=== PATIENT | female | born 1955 | race Caucasian/White ===

== ENCOUNTER 2017-05-06 09:54 | Emergency (ER) | payer OTHER ==
[~2017-05-06] VITALS: Ht 152.4 cm; Wt 61.2 kg
[~2017-05-06 09:54] MED LIST: ALEVE220 MG PO; ASPIRIN EC325 MG PO; ASPIRIN EC81 MG PO; ATORVASTATIN CA80 MG PO; CALCIUM CITRAT250 MG PO; CYCLOBENZAPRINE10 MG PO; CYMBALTA30 MG PO; DULOXETINE HCL60 MG PO; GEODON60 MG PO; GEODON80 MG PO; LAMICTAL XR100 MG PO; LAMICTAL100 MG PO; LAMICTAL200 MG PO; LAMOTRIGINE100 MG PO; LAMOTRIGINE200 M1 PO; LEXAPRO20 MG PO; LIPITOR80 MG PO; NORCO 7.5-3251 EACH PO; ONDANSETRON ODT4 MG SL; OXYCODONE HCL5 M1 PO; VITAMIN D5000 UNIT PO; XARELTO10 MG PO
[2017-05-06] MEDS ORDERED: IBUPROFEN200 M1 PO (10:02)
[2017-05-06] MEDS ORDERED: NORCO 5-325 TA1 EACH PO (11:00)
[2017-06-03] MEDS ORDERED: VISTARIL25 MG PO (11:57)
== END 2017-05-06 12:44 | disposition home or self-care (01) ==
LOC: ED 09:54
DX: S42.351A Displaced comminuted fracture of shaft of humerus, right arm, initial encounter for closed fracture (principal); F32.9 Major depressive disorder, single episode, unspecified; Z87.891 Personal history of nicotine dependence; Z96.641 Presence of right artificial hip joint; Z79.82 Long term (current) use of aspirin; Z79.899 Other long term (current) drug therapy; W19.XXXA Unspecified fall, initial encounter
CPT/HCPCS: 73060; 99283

== ENCOUNTER 2017-05-26 18:12 | Emergency (ER) | payer OTHER ==
[~2017-05-26] VITALS: Ht 152.4 cm; Wt 61.2 kg
[~2017-05-26 18:12] MED LIST changes: +IBUPROFEN200 M1 PO; +NORCO 5-325 TA1 EACH PO
[2017-05-26] MEDS ORDERED: OXYCODONE HCL5 MG PO (18:30)
[2017-05-26] MEDS ORDERED: ZIPRASIDONE HCL80 MG PO (18:30)
[2017-05-26] MEDS ORDERED: PERCOCET 5-3251 EACH PO (18:47)
[2017-06-03] MEDS ORDERED: VISTARIL25 MG PO (11:57)
== END 2017-05-26 19:17 | disposition home or self-care (01) ==
LOC: ED 18:12
DX: G89.29 Other chronic pain (principal); M25.531 Pain in right wrist; S42.301D Unspecified fracture of shaft of humerus, right arm, subsequent encounter for fracture with routine healing; F32.9 Major depressive disorder, single episode, unspecified; Z87.891 Personal history of nicotine dependence; Z96.641 Presence of right artificial hip joint; Z79.82 Long term (current) use of aspirin; Z79.899 Other long term (current) drug therapy; X58.XXXD Exposure to other specified factors, subsequent encounter
CPT/HCPCS: 99283

== ENCOUNTER 2017-07-09 06:55 | Day surgery (SDC) | payer OTHER ==
[~2017-07-09] VITALS: Ht 152.4 cm; Wt 63.0 kg
[~2017-07-09 06:55] MED LIST changes: +OXYCODONE HCL5 MG PO; +PERCOCET 5-3251 EACH PO; +VISTARIL25 MG PO; +ZIPRASIDONE HCL80 MG PO
--- NOTE | 2017-07-09 11:28 | NUR ---
07/09/17 Hannah8 Saray Ibrahim 1126 O2 SAT 100% O2 REMOVED.
--- NOTE | 2017-07-09 12:12 | NUR ---
LE 1205 PT RETURNED FROM PACU WIDE AWAKE. VITAL SIGNS TAKEN. R SHOULDER IN IMMOBILIZER WITH ICE PRESENT. SIPPING ON WATER. CALL LITE IN PLACE.
[2017-07-09] MEDS ORDERED: NORCO 10-325 T1 EACH PO (12:24)
--- NOTE | 2017-07-11 08:10 | OR ---
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 PROCEDURE Resection of pseudarthrosis and open reduction and internal fixation of right humeral fracture. SURGEON: Librado Levine MD. ANESTHESIA: General. SPECIMENS: There were no specimens. COMPLICATIONS: There were no complications. TOURNIQUET: Not used. DESCRIPTION OF PROCEDURE The patient was taken to the operating room. After anesthesia was induced and the airway secured, the patient was placed in a slightly inclined position. Right upper extremity was prepped and draped in a routine sterile fashion. Beginning at the tip of her previous incision for a total shoulder arthroplasty, a lateral incision was made over the humerus all the way down to the lateral epicondyle. Skin was divided sharply. Subcutaneous tissue was bluntly spread. Hemostasis was achieved with electrocautery. We were able to identify the radial nerve down at the lateral aspect of the supracondylar area and then dissected proximally. As the patient was having a radial nerve symptoms preoperatively, it was not surprising that the nerve was dramatically compromised within the callus. Using sharp and blunt dissection, we were subsequently able to completely free it up. The fracture site was then identified. We removed the pseudarthrosis tissue and the synovial fluid that was formed. We then debrided the ends of the proximal and distal fragments. We were then able to realign them and secure them with a 10-hole 3.5 plate using 2 bone clamps. Once we were happy with alignment, position, and reduction, we secured the reduction with multiple screws. The wound was gently irrigated and closed in a standard fashion. Sterile dressing was applied and the patient was placed in an UltraSling. She was awakened and taken to recovery room where she arrived in stable condition. Counts were correct and antibiotic protocols were followed. Electronically Signed By: LIBRADO LEVINE MD 07/11/17 0810 PATIENT NAME: ANDRA CASEY GIOVANNI OPERATIVE REPORT DATE OF : 57 PHYSICIAN: LIBRADO LEVINE MD REPORT #: [id number] REPORT IS CONFIDENTIAL AND NOT TO BE RELEASED WITHOUT AUTHORIZATION [address], [place] [address] Signed Librado Levine MD WFB/Modl /[id number] cc: RUBENS Hutton Electronically Signed By: LIBRADO LEVINE MD 07/11/17 0810 PATIENT NAME: ANDRA CASEY GIOVANNI OPERATIVE REPORT DATE OF : 57 PHYSICIAN: LIBRADO LEVINE MD REPORT #: [id number] REPORT IS CONFIDENTIAL AND NOT TO BE RELEASED WITHOUT AUTHORIZATION
== END 2017-07-09 14:30 | disposition home or self-care (01) ==
LOC: DS 06:55
PROVIDERS: Orthopaedic Surgery
PROC: 0PSF04Z Reposition Right Humeral Shaft with Internal Fixation Device, Open Approach (ICD-10-PCS; principal; 2017-07-09 08:45)
DX: S42.43 Fracture (avulsion) of lateral epicondyle of humerus (principal); W18.30XA Fall on same level, unspecified, initial encounter
CPT/HCPCS: 01630; 64415; 73060; 76942; C1713; J0330; J0690; J1100; J1885; J2250; J2405; J2704; J2795; J3010; J7120

== ENCOUNTER 2020-07-12 07:10 | Day surgery (SDC) | payer OTHER ==
[~2020-07-12] VITALS: Ht 152.4 cm; Wt 74.5 kg
[~2020-07-12 07:10] MED LIST changes: +LATUDA20 MG PO; +LISINOPRIL10 MG PO; +NORCO 10-325 T1 EACH PO; +PRAZOSIN HCL2 MG PO; +VITAMIN D21250 MCG PO
[2020-07-12] MEDS ORDERED: ZOLPIDEM TARTRA10 MG PO (07:32)
--- NOTE | 2020-07-12 08:59 | NUR ---
07/12/20 0859 Vandana Sommers 0850- PT TO PACU IN LL POSITION. EYES OPEN ASKING QUESTIONS APPROPRIATELY. DROWSY. BREATHING EASY AND UNLABORED. SPO2 >95% ON 3 L O2 VIA NC. PT DENIES PAIN OR NAUSEA. 0858- PT REPOSITIONS SELF TO LL SIDE WITH KNEES UP. PT ENCOURAGED TO PASS GAS. BREATHING EASY AND UNLABORED. SPO2 >95% ON 3 L O2 VIA NC.
--- NOTE | 2020-07-13 06:29 | OR ---
[facility] [address] [place], [place] [address] Signed DATE OF OPERATION: 07/12/2020 SURGEON: Ander Koehler MD PREOPERATIVE DIAGNOSES: 1. Cough. 2. Hiatal hernia. 3. Gastroesophageal reflux disease. 4. Gastritis. 5. Hyperplastic rectal polyps, 2008. 6. Internal hemorrhoids. POSTOPERATIVE DIAGNOSES: 1. Moderate-sized hiatal hernia. 2. Mild distal gastritis. 3. A 4 mm rectal polyp at 12 cm. PROCEDURES: 1. EGD with CLOtest and biopsies of antrum and GE junction. 2. Colonoscopy with hot biopsy. ESTIMATED BLOOD LOSS: None. INDICATIONS: Andra is a 64-year-old female, asked to see me for both upper and lower endoscopy. She has had cough, but the inhaled steroids seemed to be helping. She is known to have a moderate-sized hiatal hernia along with the acid reflux and gastritis back in 2008. Her repeat chest x-ray did show a hiatal hernia. She is also known to have hyperplastic rectal polyps as well as some internal hemorrhoids from 2008. There is no family history of colon cancer or polyps. She has no lower GI complaints. She has done well with Versed and fentanyl in the past. I had met with Andra in the office and I reviewed with her upper and lower endoscopy. I gave her pamphlets on both, so she could look at this closer at home. She understands there is risk including, but not limited to gas bloating, crampy abdominal pain, bleeding, perforation requiring surgery, and missed diagnosis. We also discussed the need for the IV conscious sedation. She had expressed understanding and wished to proceed. DESCRIPTION OF PROCEDURE: Andra was taken into our endoscopy suite and placed in a supine semi-recumbent position. Electronically Signed By: ANDER KOEHLER MD 07/13/20 0629 PATIENT NAME: ANDRA VELIZ OPERATIVE REPORT DATE OF : 57 REPORT #: [id number] PHYSICIAN: ANDER KOEHLER MD PCP: ROYAL MONTERO REPORT IS CONFIDENTIAL AND NOT TO BE RELEASED WITHOUT AUTHORIZATION [facility] [address] [place], [place] [address] Signed She has been through a hip replacement and shoulder surgery and she has used quite a bit hydrocodone, oxycodone, but none recently. Nevertheless, she used 11 mg of Versed and 225 mcg of fentanyl to cover the whole case. Even then she was talking with this during the upper and lower endoscopy. Yet afterward she said she did fine and does not seem to recall the procedures. The posterior oropharynx was anesthetized with lidocaine spray. A bite block has been utilized for the case. The adult gastroscope was introduced and advanced under direct visualization of camera into the third portion of the duodenum under direct visualization without difficulty. The duodenum and pyloric channel were unremarkable. Very mild erythema in the antrum, so we took a biopsy for CLOtest as well as pathologic review. Otherwise, the incisura body and fundus of the stomach were unremarkable. Upon retroflexion of the scope, we can certainly see her moderate-sized hiatal hernia. The scope was withdrawn up through the GE junction and was compliant without stricture. No gastric or esophageal varices. No Esteban ulcer. No Kadie-Bill tear. She does have mild disruption to the Z-line. Consequently, we took a biopsy along this area for pathologic review. However no Albarran's mucosa, no distal esophagitis. The middle and upper esophagus were unremarkable. We could also see that the vocal cords and arytenoids were unremarkable. After this, the gas was suctioned out and the gastroscope removed. Andra tolerated procedure quite well. Andra was rotated into the left lateral decubitus position. She had been maintained on the Versed and fentanyl. A digital rectal exam was performed and this was unremarkable. The adult colonoscope was introduced and advanced under direct visualization of camera into the cecum itself. Her prep was quite excellent. We could easily see the ileocecal valve and the appendiceal orifice. She did talk to us a bit as we advanced the scope, but again she does not seem to have any recall of that afterwards. The scope was slowly withdrawn. The entire colon was unremarkable. She had just a small polyp in the top of the rectum, which we removed with the help of hot biopsy forceps. Upon retroflexion of scope, we really did not see any pathology on this occasion. The gas was then suctioned out and the colonoscope removed. Andra tolerated the lower endoscopy quite well. RECOMMENDATIONS: I will see Andra back in my office in 7 to 14 days to review her results. MD YADI Coyne/KALYNL /[id number] Electronically Signed By: ANDER KOEHLER MD 07/13/20 0629 PATIENT NAME: ANDRA VELIZ OPERATIVE REPORT DATE OF : 57 REPORT #: [id number] PHYSICIAN: ANDER KOEHLER MD PCP: ROYAL MONTERO REPORT IS CONFIDENTIAL AND NOT TO BE RELEASED WITHOUT AUTHORIZATION [facility] [address] [place] [address] Signed cc: [facility] MD Royal Coyne Copies: ANDER KOEHLER MD, BRUCE ~ Electronically Signed By: ANDER KOEHLRE MD 07/13/20 0629 PATIENT NAME: ANDRA VELIZ OPERATIVE REPORT DATE OF : 57 REPORT #: [id number] PHYSICIAN: ANDER KOEHLER MD PCP: ROYAL MONTERO REPORT IS CONFIDENTIAL AND NOT TO BE RELEASED WITHOUT AUTHORIZATION
--- NOTE | 2020-07-13 11:16 | PATH ---
[facility] [address] [place], [place] [address] Signed SPECIMEN(S): A ANTRUM/PYLORUS SPECIMEN(S): B GE JUNCTION SPECIMEN(S): C RECTAL POLYP AT 12 CM SPECIMEN SOURCE: A. ANTRUM/PYLORUS B. GE JUNCTION C. RECTAL POLYP AT 12 CM CLINICAL HISTORY: GERD, chronic cough, hiatal hernia, gastritis, history polyps. Post-op: Mild gastritis, hiatal hernia, rectal polyp. Esophagogastroduodenoscopy, colonoscopy. MICROSCOPIC DESCRIPTION: Histologic sections of all submitted blocks are examined by light microscopy. These findings, together with the gross examination, support the pathologic diagnosis. FINAL PATHOLOGIC DIAGNOSIS: A. Stomach, antrum/pylorus, biopsy: - Antral mucosa with mild chronic, inactive gastritis. - Negative for Helicobacter organisms on HE stain. - Negative for dysplasia or malignancy. B. Gastroesophageal junction, biopsy: - Squamous mucosa with no histopathologic abnormality. - Negative for intestinal metaplasia, dysplasia, or malignancy. C. Rectum, polyp at 12 cm, polypectomy: - Hyperplastic polyp. - Negative for dysplasia or malignancy. NAL:cml:C2NR GROSS DESCRIPTION: Three specimens are received in three containers, labeled "LH." A. The specimen, labeled "LH," and designated on the requisition "antrum/pylorus biopsy," is received in formalin and consists of one fragment of pink-burgess tissue (0.4 x 0.3 x 0.2 cm). The specimen is submitted entirely in cassette (A1). B. The specimen, labeled "LH," and designated on the requisition "EG junction biopsy," is received in formalin and consists of one fragment of white-burgess tissue (4.5 x 0.2 x 0.2 cm). The specimen is submitted entirely in cassette (B1). PATIENT NAME: ANDRA VELIZ PATHOLOGY DATE OF : 57 REPORT #: [id number] PHYSICIAN: RADHA PATHOLOGY PCP: EVETTE MONTERO REPORT IS CONFIDENTIAL AND NOT TO BE RELEASED WITHOUT AUTHORIZATION [facility] [address] [place], [place] [address] Signed C. The specimen, labeled "LH," and designated on the requisition "rectal polypectomy at 12 cm," is received in formalin and consists of one fragment of pink-burgess tissue (0.3 x 0.2 x 0.2 cm). The specimen is submitted entirely in cassette (C1). AC (under the direct supervision of a pathologist) The Gross Description was prepared using a voice recognition system. The report was reviewed for accuracy; however, sound-alike word errors, addition and/or deletions may occur. If there is any question about this report, please contact Client Services. PERFORMING LABORATORY: The technical component was performed by [facility], [address] [place] [id number] (Freight Checker: Enid Leon MD; CLIA# [id number]). [facility], [address] [place] [id number] (CLIA# [id number]). Diagnostician: Nae Hernandez MD Pathologist Electronically Signed 07/13/2020 Copies: ~ PATIENT NAME: ANDRA VELIZ PATHOLOGY DATE OF : 57 REPORT #: [id number] PHYSICIAN: RADHA PATHOLOGY PCP: EVETTE MONTERO REPORT IS CONFIDENTIAL AND NOT TO BE RELEASED WITHOUT AUTHORIZATION
== END 2020-07-12 09:35 | disposition home or self-care (01) ==
LOC: DS 07:10 → OPS 07:10 → DS 08:15 → OPS 08:15
PROVIDERS: ATTEND Colon & Rectal Surgery
PROC: 0DBP8ZZ Excision of Rectum, Via Natural or Artificial Opening Endoscopic (ICD-10-PCS; 2020-07-12)
PROC: 0DB48ZX Excision of Esophagogastric Junction, Via Natural or Artificial Opening Endoscopic, Diagnostic (ICD-10-PCS; principal; 2020-07-12 08:15)
PROC: 0DB78ZX Excision of Stomach, Pylorus, Via Natural or Artificial Opening Endoscopic, Diagnostic (ICD-10-PCS; 2020-07-12 08:15)
DX: Z12.11 Encounter for screening for malignant neoplasm of colon (principal); K62.1 Rectal polyp; K29.50 Unspecified chronic gastritis without bleeding; K21.9 Gastro-esophageal reflux disease without esophagitis; K44.9 Diaphragmatic hernia without obstruction or gangrene; I25.10 Atherosclerotic heart disease of native coronary artery without angina pectoris; E78.5 Hyperlipidemia, unspecified; E55.9 Vitamin D deficiency, unspecified; F31.9 Bipolar disorder, unspecified; F41.0 Panic disorder [episodic paroxysmal anxiety]; F43.10 Post-traumatic stress disorder, unspecified; Z87.19 Personal history of other diseases of the digestive system; Z79.899 Other long term (current) drug therapy; Z79.82 Long term (current) use of aspirin; Z87.891 Personal history of nicotine dependence
CPT/HCPCS: 86677; 99153; G0500; J0690; J2250; J3010; J7121

== ENCOUNTER 2025-03-23 18:09 | Emergency (ER) | payer OTHER, MEDICARE ==
[~2025-03-23] VITALS: Ht 152.4 cm; Wt 71.1 kg
[~2025-03-23 18:09] MED LIST changes: +HYDROCODON-ACE1 EA10 PO; +ZOLPIDEM TARTRA10 MG PO
[2025-03-23 19:00] VITALS: BP 129/77
== END 2025-03-23 19:00 | disposition home or self-care (01) ==
LOC: ED 18:09
DX: R07.89 Other chest pain (principal); Z79.82 Long term (current) use of aspirin; Z79.899 Other long term (current) drug therapy; Z87.891 Personal history of nicotine dependence
CPT/HCPCS: 71045; 99284-25

== ENCOUNTER 2025-08-24 09:34 | Inpatient (IN) | payer MEDICARE ==
[~2025-08-24] VITALS: Ht 152.4 cm; Wt 70.0 kg
[~2025-08-24 09:34] MED LIST changes: +HYDROXYZINE PAM25 MG PO; -VISTARIL25 MG PO
[2025-08-24] MEDS ORDERED: ALBUTEROL/IPRATROPIUM 3 ML NEB INH PRN (09:45)
[2025-08-24 09:52] LABS: MCH 30.9 PG (25.6-32.2); MCHC 32.9 g/dL (32.2-35.5); MCV 94.0 fL (79.4-94.8); RBC 4.17 M/uL (3.93-5.22)
[2025-08-24] MEDS ORDERED: SODIUM CHLORIDE 0.9% 1,000 ML IV PRN (10:15)
[2025-08-24 10:18] LABS: BANDS, MANUAL DIFF 3; LYMPHOCYTES, MANUAL DIFF 33; MONOCYTES, MANUAL DIFF 2; NEUTROPHILS, MANUAL DIFF 62
[2025-08-24 10:20] LABS: BASOPHILS, MANUAL DIFF 0; EOSINOPHILS, MANUAL DIFF 0
[2025-08-24 10:21] LABS: ALT (SGPT) 48.0 U/L (14-59); AST (SGOT) 34.0 U/L (15-37); GLOMERULAR FILTRATION RATE,EST 53.0 mL/min (>60); PROTEIN, TOTAL 6.9 g/dL (6.4-8.2); UREA NITROGEN 16.0 mg/dL (7-18)
[2025-08-24 10:23] LABS: CORONAVIRUS COVID-19 AG NEGATIVE (NEGATIVE)
[2025-08-24] MEDS ORDERED: TRAZODONE HCL100 MG PO (10:50)
[2025-08-24] MEDS ORDERED: GABAPENTIN100 MG PO (10:50)
[2025-08-24] MEDS ORDERED: PRAZOSIN HCL5 MG PO (10:51)
[2025-08-24] MEDS ORDERED: ARIPIPRAZOLE2 MG PO (10:51)
[2025-08-24] MEDS ORDERED: DULOXETINE HCL30 MG PO (10:51)
[2025-08-24] MEDS ORDERED: TRAZODONE HCL50 MG PO (10:52)
[2025-08-24] MEDS ORDERED: LISINOPRIL20 MG PO (10:52)
[2025-08-24] MEDS ORDERED: ZOLPIDEM TART12.5 MG PO (10:53)
[2025-08-24] MEDS ORDERED: SPIRIVA RESPIMAT4 G1 INH (10:53)
[2025-08-24] MEDS ORDERED: VENTOLIN HFA18 GM INH (10:53)
[2025-08-24] MEDS ORDERED: ROSUVASTATIN CA20 MG PO (10:54)
[2025-08-24] MEDS ORDERED: ALENDRONATE SOD70 MG PO (10:55)
[2025-08-24 11:18] LABS: BLOOD/HGB, URINE NEGATIVE (Negative); KETONE, URINE NEGATIVE (Negative); LEUK ESTERASE, URINE SMALL (negative); NITRITE, URINE NEGATIVE (negative)
[2025-08-24 11:24] LABS: BACTERIA, URINE RARE /hpf (negative); CASTS, URINE NONE SEEN \\lpf; CRYSTALS, URINE NONE SEEN (0-1+)
[2025-08-24 11:25] LABS: EPITHELIAL CELLS, URINE SQUAMOUS 1+ /lpf (0-1+)
[2025-08-24 11:26] LABS: REFLEX CULTURE, URINE Yes (No)
[2025-08-24] MEDS ORDERED: ACETAMINOPHEN 325 MG TAB PO PRN (13:15)
[2025-08-24] MEDS ORDERED: LACTATED RINGER'S 1,000 ML IV SCH (13:15)
[2025-08-24] MEDS ORDERED: ALBUTEROL/IPRATROPIUM 3 ML NEB INH SCH (14:00)
[2025-08-24] MEDS ORDERED: TRAZODONE HCL 100 MG TAB PO PRN (14:00)
[2025-08-24] MEDS ORDERED: ZOLPIDEM TARTRATE 5 MG TAB PO PRN (14:00)
[2025-08-24 14:11] VITALS: BP 133/71
--- NOTE | 2025-08-24 14:20 | NUR ---
PT REPORT RECIEVED FROM KALI COSBY. PT TRANSPORTED VIA STRETCHER AND DID STAND AND AMBULATE TO BED, PT TOLERATED WELL. AND IS CURRENTLY IN BED WITH CALL LIGHT IN REACH AND NO CURRENT CONCERNS, PT VITALS STABLE AT THIS TIME.
[2025-08-24] MEDS ORDERED: DULOXETINE HCL60 MG PO (14:40)
[2025-08-24] MEDS ORDERED: GABAPENTIN 100 MG CAP PO SCH (15:00)
--- NOTE | 2025-08-24 15:21 | NUR ---
MED REC COMPLETE
[2025-08-24] MEDS ORDERED: ARIPiprazole 5 MG TAB PO SCH ×2 (17:00)
--- NOTE | 2025-08-24 17:12 | NUR ---
PT COMPLAINED OF HEAD ACHE AND WAS GIVEN PRN TYLENOL (SEE EMAR). PT TEMP 100.4. PT HAS NO OTHER CONCERNS AT THIS TIME CALL LIGHT IN REACH.
[2025-08-24] MEDS ORDERED: TRAZODONE HCL 50 MG TAB PO PRN (17:30)
[2025-08-24 17:49] VITALS: BP 108/56
[2025-08-24 18:00] VITALS: BP 108/56
--- NOTE | 2025-08-24 18:36 | NUR ---
PT LAYING IN BED, PT DENIES ANY CURRENT PAIN AND DENIES ANY CHILLS PRESENT AT THIS TIME, PT HAS CALL LIGHT IN REACH IF NEEDED.
--- NOTE | 2025-08-24 19:13 | NUR ---
VERBAL REPORT RECEIVED FROM MARIA TERESA BASS. PATIENT IS SITTING UP IN BED AT THIS TIME. DENIES ANY NEEDS AT THIS TIME. CALL LIGHT WITHIN REACH.
[2025-08-24 20:21] VITALS: BP 102/57
--- NOTE | 2025-08-24 20:30 | NUR ---
MD FUENTESFIED OF PATIENT BP OF 98/60 AND SHCEDULED MEDICATION, TELEPHONE ORDER TO HOLD MEDICATION DUE TO LOW BP.
[2025-08-24 20:44] VITALS: BP 102/57
--- NOTE | 2025-08-24 20:53 | NUR ---
PATIENT AMBULATES TO BATHROOM VIA SBA, TOLERATED WELL. PATIENT VOIDED 100ML OF CLEAR YELLOW URINE. PATIENT DENIES ANY PAIN AT THIS TIME. PATIENT DENIES ANY FURTHER NEEDS AT THIS TIME. BED ALARM ON FOR PATIENT SAFETY. CALL LIGHT WITHIN REACH.
[2025-08-24] MEDS ORDERED: MELATONIN 3 MG TAB PO PRN (21:00)
[2025-08-24] MEDS ORDERED: PRAZOSIN HCL 5 MG CAP PO SCH (21:00)
--- NOTE | 2025-08-24 22:25 | NUR ---
CALL LIGHT ANSWERED. PT UP TO BR WITH MINIMAL SBA TO VOID AND HAVE BM. BACK TO BED, IZZY WELL. GAIT STEADY. NO FURTHER NEEDS.
[2025-08-25] VITALS (10 sets, daily range): BP systolic 111–133; BP diastolic 49–75
--- NOTE | 2025-08-25 00:27 | NUR ---
PATIENT CALLS TO USE RESTROOM. PATIENT ASSISTED TO THE BATHROOM VIA SBA. PATIENT TOLERATED WELL. PATIENT BACK IN BED, DENIES ANY NEEDS AT THIS TIME. BED ALARM ON FOR PATIENT SAFETY. CALL LIGHT WITHIN REACH.
--- NOTE | 2025-08-25 00:55 | NUR ---
PATIENT ASSISTED TO BATHROOM VIA SBA. PATIENT URINATED 500ML OF CONCENTRATED YELLOW URINE. PATIENT DENIES ANY FURTHER NEEDS AT THIS TIME. PATIENT BACK IN BED WITH CALL LIGHT IN REACH.
--- NOTE | 2025-08-25 02:00 | NUR ---
PATIENT COMPLAINS OF HEADACHE AND CHILLS WITH A TEMP OF 102.8, PRN MEDICAITON GIVEN (SEE EMAR). COLD WASH RAG APPLIED TO FOREHEAD. ROOM TEMP DECREASED. PATIENT EDUCATED ON IS USE, DEMONSTRATED UNDERSTANDING OF IS USE. FRESH ICE WATER PROVIDED. CALL LIGHT WITHIN REACH.
--- NOTE | 2025-08-25 04:09 | NUR ---
PATIENT ASSISTED TO BATHROOM VIA SBA. PATIENT COMPLAINS OF HEADACHE BUT DENIES CHILLS, ICE PACK PROVIDED. TEMPERATURE WAS 99.1. PATIENT DENIES ANY FURTHER NEEDS. BED ALARM ON FOR PATIENT SAFETY. CALL LIGHT WITHIN REACH.
--- NOTE | 2025-08-25 05:27 | NUR ---
PATIENT CALLS TO USE BATHROOM. PATIENT AMBULATES TO BATHROOM VIA SBA. PATIENT BACK IN BED. BED ALARM ON FOR PATIENT SAFETY. VSS. CALL LIGHT WITHIN REACH.
[2025-08-25 05:45] LABS: MCH 31.4 PG (25.6-32.2); MCHC 33.7 g/dL (32.2-35.5); MCV 93.0 fL (79.4-94.8); RBC 3.73 M/uL (3.93-5.22)
[2025-08-25 06:04] LABS: BASOPHILS, MANUAL DIFF 1; LYMPHOCYTES, MANUAL DIFF 43; MONOCYTES, MANUAL DIFF 2; NEUTROPHILS, MANUAL DIFF 54
[2025-08-25 06:19] LABS: ALT (SGPT) 35.0 U/L (14-59); AST (SGOT) 25.0 U/L (15-37); GLOMERULAR FILTRATION RATE,EST 81.0 mL/min (>60); PROTEIN, TOTAL 6.1 g/dL (6.4-8.2); UREA NITROGEN 11.0 mg/dL (7-18)
--- NOTE | 2025-08-25 07:30 | NUR ---
MORNING REPORT RECIEVED FROM KALI FARAH. PT HAD HAD SPIKED A TEMPERATURE DURING THE SHIFT (SEE VITALS), AND WAS GIVEN TYLENOL (SEE EMAR). PT TOLERATED WELL AND HAS NO CURRENT CONCERNS AT THIS TIME CALL LIGHT IN REACH.
--- NOTE | 2025-08-25 07:44 | NUR ---
UR CLINICAL REVIEW: 2 MN FOR VERSALUS-PER PROTECTION OFFICER MEETS INPT FOR ACUTE PYELONEPHRITIS WITH NEED FOR IV ABX, IVF AND MONITORING FOR GREATER THEN 2 MN MEDICARE INPT 08/24/25 @ 1315 ORDER MATCHES REG NO AUTH REQUIRED PER MEDICARE GUIDELINES DISCHARGE TO HOME WHEN STABLE 08/26/25 DC REVIEW
[2025-08-25] MEDS ORDERED: lamoTRIgine 100 MG TAB PO SCH (08:00)
[2025-08-25] MEDS ORDERED: ENOXAPARIN SODIUM 40 MG/0.4 ML SYR SUB-Q SCH (09:00)
[2025-08-25] MEDS ORDERED: DULOXETINE HCL 30 MG CAP PO SCH ×2 (09:00→21:00)
[2025-08-25] MEDS ORDERED: POTASSIUM CHLORIDE 40 MEQ,LIDOCAINE HCL 1% 40 MG in DEXTROSE 5% 250 ML IV ONE (09:00)
--- NOTE | 2025-08-25 10:00 | NUR ---
Spoke with Breanne. She lives alone in a Duplex with 1 steps.She has a scooter she uses for hills, she walks in her apartment without assistance. She uses the food bank and [employer]NAP. She does not have a car, but has taxi tickets and a scooter. She denies financial issues. She does have safety concerns as she has a restraining order for her son, Jewel, who is schizophrenic. She plans on dc to home when medically cleared. Daughter is in the room and lives in [facility]. She checks on her mom daily. Pt denies needs for dc when medically cleared.
--- NOTE | 2025-08-25 10:00 | NUR ---
PT LAYING IN BED RESTING WITH EYES CLOSED CHEST RISE EQUAL BILAT, PT HAS CALL LIGHT IN REACH IF NEEDED.
--- NOTE | 2025-08-25 11:09 | NUR ---
PT LAYING IN BED AT THIS TIME WITH NO CURRENT NEEDS, PT IS VISITING WITH THEIR SISTER. PT CALL LIGHT IN REACH.
[2025-08-25] MEDS ORDERED: PHARMACY RENAL DOSE ADJUSTMENT 1 DOSE MISC PO SCH (12:00)
--- NOTE | 2025-08-25 12:13 | NUR ---
PT LAYING IN BED TALKING WITH FAMILY, PT STATES THEY FEEL CHILLS, PT TEMPERATURE WAS TAKEN ORALLY AND WAS 100.1 PT EDUCATED AND HAS NO CURRENT CONCERNS AT THIS TIME CALL LIGHT IN REACH.
[2025-08-25] MEDS ORDERED: LACTATED RINGER'S 1,000 ML IV SCH (13:00)
--- NOTE | 2025-08-25 13:08 | NUR ---
TAKING OVER CARE, UP TO BR, VOIDED, BACK TO BED, SBS, TOLERATED WELL ON ROOM AIR. C/O CHILLS AND GENERALIZED ACHES. IV K RIDER INFUSING RAC.
--- NOTE | 2025-08-25 13:14 | NUR ---
C/O ALL OVER BODY ACHES, MEDICATED WITH TYLENOL PO. INSTRUCTED ON NEW ORDER FOR IVF CONTINUOUS LR AT 100CC/HR.
--- NOTE | 2025-08-25 15:27 | NUR ---
PT UP TO BR, DOING OWN CARE AND BRUSHING TEETH. IVF INFUSING W/O PROBLEMS. SBA, NO FURTHER C/O PAIN
--- NOTE | 2025-08-25 17:08 | NUR ---
Awake, on room air, eating, IVF infusing w/o problems, no c/o pain
--- NOTE | 2025-08-25 18:01 | NUR ---
CORPORATE LAW ASSISTANT GOT VITALS AND I&O'S, FRESH ICE WATER, AND NOTHING ELSE NEEDED AT THIS TIME.
--- NOTE | 2025-08-25 18:34 | NUR ---
Pt in bed, awakens easily, on room air, gets nebs . Walked to BR with 1 PA/SBA, has tolerated well, slight unsteadiness present. IVF infusing w/o problems, Was medicated with Tylenol earlier, no further c/o.
--- NOTE | 2025-08-25 19:18 | NUR ---
pPT C/O H/A AND GENERALIZED ACHES, MEDICATED WITH tYLENOL AND ICE PACK GIVEN FOR BACK OF HEAD. ALERT AND ORIENTED. NO C/O N/V. IVF INFUSING W/O PROBLEMS.
--- NOTE | 2025-08-25 19:47 | NUR ---
REPORT RECEIVED FROM KALI ORLANDO. PATIENT RESTING IN BED, KALI ORLANDO IN ROOM MEDICATING PATIENT. SHE DENIES ANY FURTHER NEEDS, CALL LIGHT IN REACH.
--- NOTE | 2025-08-25 21:17 | NUR ---
VS OBTAINED AND RECORDED, INTAKE AND OUTPUT DOCUEMENTED. ASSESSMENT COMPLETE. SCHEDULED MEDICATIONS GIVEN TO PATIENT PER ORDER, PRN MEDICATION GIVEN FOR SLEEP PER REQUEST. PATIENT DENIES ANY NEEDS, CALL LIGHT IN REACH
--- NOTE | 2025-08-25 22:40 | NUR ---
PATIENT CALLED NURSING STATION. PATIENT UP TO THE RESTROOM TO VOID. PATIENT SBA TOLERATED WELL. BED CLEANED UP, DENIES ANY OTHER CARES AT THIS TIME. LIGHTS TURNED DOWN.
--- NOTE | 2025-08-26 00:47 | NUR ---
ROUNDED ON PATIENT, PATIENT RESTING WITH EYES CLOSED, RESPIRATIONS EVEN AND UNLABORED. NO NEEDS IDENTIFIED, CALL LIGHT IN REACH
--- NOTE | 2025-08-26 01:53 | NUR ---
NEW IVF BAG HUNG PER ORDER. INFUSING WITHOUT DIFFICULTY. GIVEN BLANKET PER REQUEST. NO OTHER NEEDS, CALL LIGHT IN REACH
--- NOTE | 2025-08-26 02:38 | NUR ---
CALL LIGHT ANSWERED, PATIENT UP TO RESTROOM WITH MINIAL SBA, BACK TO BED WITHOUT DIFFICULTY. PRN TYLENOL GIVEN FOR HEADACHE PER PATIENT REQUEST. NO FURTHER NEEDS, CALL LIGHT IN REACH, BED ALARM ON.
--- NOTE | 2025-08-26 03:43 | NUR ---
RESPONDED TO BED ALARM, PATIENT UP SITTING ON SIDE OF BED, SHE STATES SHE IS AWAKE AND DOES NOT WANT TO GO BACK TO SLEEP. PATIENT ASSISTED TO CHAIR, CHAIR ALARM ON, ALL BELONGINGS WITHIN REACH. IVF CONTINUING TO INFUSE PER ORDER. NO OTHER NEEDS, CALL LIGHT IN REACH
[2025-08-26 05:47] VITALS: BP 112/63
[2025-08-26 05:49] VITALS: BP 112/63
--- NOTE | 2025-08-26 05:49 | NUR ---
BED ALARM ANSWERED. PT NEEDED TO USE BATHROOM. KITCHEN AIDE SBA TO BATHROOM. PT VOIDED AND ASSISTED BACK TO BED. VITALS AND I&O OBTAINED. PT STATES NO FURTHER NEEDS AT THIS TIME. CALL LIGHT WITHIN REACH AND BED ALARM ON.
[2025-08-26 05:50] LABS: MCH 30.6 PG (25.6-32.2); MCHC 33.4 g/dL (32.2-35.5); MCV 91.6 fL (79.4-94.8); RBC 3.56 M/uL (3.93-5.22)
[2025-08-26 06:13] LABS: LYMPHOCYTES, MANUAL DIFF 34; MONOCYTES, MANUAL DIFF 10; NEUTROPHILS, MANUAL DIFF 56
[2025-08-26 06:21] LABS: ALT (SGPT) 26.0 U/L (14-59); AST (SGOT) 28.0 U/L (15-37); GLOMERULAR FILTRATION RATE,EST 94.0 mL/min (>60); PROTEIN, TOTAL 5.4 g/dL (6.4-8.2); UREA NITROGEN 12.0 mg/dL (7-18)
--- NOTE | 2025-08-26 08:17 | NUR ---
BED ALRM GOING OFF, PT GETTING OUT OF BED, HELPED TO CHAIR, EATING BREAKFAST AT THIS TIME, NO C/O PAIN. CHAIR ALARM IN PLACE
--- NOTE | 2025-08-26 09:06 | NUR ---
PT ASSISTED BACK TO BED FOR IV START, NEW IV PLACED RFA 20#. PT THEN ASSISTED UP TO BATHROOM TO VOID AND THEN WANTED TO GET BACK INTO BED. TYLENOL GIVEN PER EMAR FOR 4/10 HEADACHE AND NECK PAIN. CALL LIGHT IN REACH, NO FURTHER REQUESTS.
[2025-08-26 09:10] VITALS: BP 102/54
[2025-08-26 09:39] VITALS: BP 102/54
--- NOTE | 2025-08-26 09:39 | NUR ---
pt sitting edge of bed, new iv restarted by Danette TECHNOLOGY AND ENGINEERING TEACHER RFA. no c/o pain, visiting with family via phone
--- NOTE | 2025-08-26 09:39 | NUR ---
UR DC REVIEW: CONTINUED NEED FOR IV FLUIDS, IV ANTIBIOTICS, PENDING URINE CULTURE PLAN TO DC TO HOME WHEN MEDICALLY READY ADD: 08/27/2025 NO ESCALATIONS NEEDED.
--- NOTE | 2025-08-26 10:17 | NUR ---
Spoke with Breanne. She is ready and wanting to go home. She denies any needs. Daughter plans to pick her up and take her home.
[2025-08-26] MEDS ORDERED: CEFPODOXIME PR200 MG PO (11:05)
--- NOTE | 2025-08-26 12:05 | NUR ---
pt in bed, room air, no c/o pain. IV RFA dc'd, tip intact. 2x[address] Dc instructions given verbally and written, stated back DC instructions. questions answered to her satisfaction. "I called my ride, I want to leave after I eat".
--- NOTE | 2025-08-26 12:37 | NUR ---
Pt being dc'd home via w/c to private car with all belongings. DC written instructions. DC instructions given earlier written and verbally, stated understanding. aware to pick Rx at [facility]
--- NOTE | 2025-08-26 13:54 | EKG ---
[facility] [address] [facility] [place] [address] Signed Normal sinus rhythm Left axis deviation T wave abnormality, consider anterolateral ischemia Abnormal ECG Confirmed by Hilda Parks DO ([id number]) on 08/26/2025 1:54:17 PM Electronically Signed By: HILDA PARKS DO 08/26/25 1354 PATIENT NAME: ANDRA VELIZ Electrocardiogram DATE OF : 57 PHYSICIAN: HILDA PARKS DO REPORT #: [id number] REPORT IS CONFIDENTIAL AND NOT TO BE RELEASED WITHOUT AUTHORIZATION
== END 2025-08-26 12:38 | disposition home or self-care (01) | DRG 690 ==
LOC: ED 09:34 → MS 13:19
PROVIDERS: Emergency Medicine; ADMIT Student in an Organized Health Care Education/Training Program; ATTEND Student in an Organized Health Care Education/Training Program
DX: N10 Acute pyelonephritis (principal); J44.9 Chronic obstructive pulmonary disease, unspecified; Z96.641 Presence of right artificial hip joint; F32.9 Major depressive disorder, single episode, unspecified; F60.3 Borderline personality disorder; M81.0 Age-related osteoporosis without current pathological fracture; E78.5 Hyperlipidemia, unspecified; G62.9 Polyneuropathy, unspecified; R06.02 Shortness of breath; Z87.891 Personal history of nicotine dependence; Z98.890 Other specified postprocedural states; Z79.899 Other long term (current) drug therapy; Z79.51 Long term (current) use of inhaled steroids
CPT/HCPCS: 36415; 71045; 74176; 80053; 81001; 83605; 83735; 83880; 84484; 85025; 87040; 87088; 93005; 93010; 93306; 94640; 94760; A9270; J0696; J1650; J3480; J3490; J7030; J7060; J7121; Q0177